=== PATIENT | female | born 1970 | race Caucasian/White ===

== ENCOUNTER 2020-07-05 14:32 | Emergency (ER) | payer MEDICARE ==
[2020-07-05 14:48] VITALS: BP 116/77; PULSE 82; RESP 18; TEMP 98
--- NOTE | 2020-07-05 14:58 | ED ---
Recheck HPI - General Source: patient Mode of arrival: ambulatory Limitations: no limitations <Thomas Johns - Last Filed: 07/05/20 15:59> <Esme Rainey - Last Filed: 07/07/20 11:38> - General Chief Complaint: Recheck/Abnormal Lab/Rx Stated Complaint: Med refill Time Seen by Provider: 07/05/20 14:52 - History of Present Illness Initial Comments: 49-year-old female presenting to the emergency room with a chief complaint of medication refill. Patient states she recently had a new insurance and is in the process of finding a new primary care physician I catches. Patient reports taking multiple medications but she is currently out of temazepam, Minipress and risperidone. Patient states she has been on these medications for the past 6 years. Patient did bring documents verifying her last medication refill. She denies any other complaints (Thomas Johns) - Related Data Previous Rx's Medication Instructions Recorded Prazosin HCl [Minipress] 2 mg PO HS #30 cap 07/05/20 Temazepam 30 mg PO HS PRN 3 Days #3 cap 07/05/20 risperiDONE 3 mg PO HS #30 tablet 07/05/20 Allergies Allergy/AdvReac Type Severity Reaction Status Date / Time codeine Allergy Dyspnea Verified 07/05/20 14:43 levofloxacin [From Levaquin] Allergy Swelling Verified 07/05/20 14:43 montelukast [From Singulair] Allergy Dyspnea Verified 07/05/20 14:43 Penicillins Allergy Rash/Hives Verified 07/05/20 14:43 trazodone Allergy Dyspnea Verified 07/05/20 14:43 Review of Systems ROS Other: All systems not noted in ROS Statement are negative. <Thomas Johns - Last Filed: 07/05/20 15:59> ROS Other: All systems not noted in ROS Statement are negative. <Esme Rainey - Last Filed: 07/07/20 11:38> ROS Statement: Those systems with pertinent positive or pertinent negative responses have been documented in the HPI. Past Medical History Past Medical History: Thyroid Disorder History of Any Multi-Drug Resistant Organisms: None Reported Past Surgical History: No Surgical Hx Reported Additional Past Surgical History / Comment(s): ovarian cyst, deviated septum Past Psychological History: Bipolar, PTSD, Schizophrenia Smoking Status: Current every day smoker Past Alcohol Use History: None Reported Past Drug Use History: None Reported <Thomas Johns - Last Filed: 07/05/20 15:59> General Exam Limitations: no limitations General appearance: alert, in no apparent distress Head exam: Present: atraumatic, normocephalic, normal inspection Eye exam: Present: normal appearance, PERRL, EOMI Pupils: Present: normal accommodation ENT exam: Present: normal exam, normal oropharynx, mucous membranes moist Neck exam: Present: normal inspection, full ROM. Absent: tenderness, meningismus Respiratory exam: Present: normal lung sounds bilaterally. Absent: respiratory distress, wheezes, rales Cardiovascular Exam: Present: regular rate, normal rhythm, normal heart sounds Extremities exam: Present: normal inspection, full ROM Back exam: Present: normal inspection, full ROM Neurological exam: Present: alert, oriented X3, normal gait Psychiatric exam: Present: normal affect, normal mood Skin exam: Present: warm, dry, intact, normal color <Thomas Johns - Last Filed: 07/05/20 15:59> Course Vital Signs 07/05/20 14:43 Temperature 98 F Pulse Rate 82 Respiratory 18 Rate Blood Pressure 116/77 O2 Sat by Pulse 98 Oximetry Medical Decision Making <Thomas Johns - Last Filed: 07/05/20 15:59> <Esme Rainey - Last Filed: 07/07/20 11:38> - Medical Decision Making 49-year-old female presenting to emergency Department with chief complaint medication refill. Patient was given 30 tablets of the risperidone and Minipress. However, the temazepam is a controlled substance and she was only given a three-day supply of medications. Advised her to obtain a primary care physician or psychiatrist in order to continue getting refills of medication. MAPS obtained on patient. Case discussed with physician. (Thomas Johns) I was available for consultation in the emergency department. The history and physical exam were done by the midlevel provider. I was consulted for this patients care. I reviewed the case with the midlevel provider and based on their presentation of the patient, I agree with the assessment, medical decision making and plan of care as documented. Chart was dictated using [employer] dictation software. Attempts were made to correct any dictation errors however some typographical errors may persist. Patient was seen during a national state of emergency due to the Covid-19 pandemic. (Esme Rainey) Disposition Is patient prescribed a controlled substance at d/c from ED?: Yes If prescribed controlled substance>3 days was MAPS reviewed?: Prescribed <3 Days Time of Disposition: 15:12 <Thomas Johns - Last Filed: 07/05/20 15:59> <Esme Rainey - Last Filed: 07/07/20 11:38> Clinical Impression: Encounter for medication refill Disposition: HOME SELF-CARE Condition: Stable Instructions (If sedation given, give patient instructions): Risperidone (By mouth) Additional Instructions: Follow-up with a primary care physician and psychiatrist.Please return to the Emergency Department if symptoms worsen or any other concerns. Prescriptions: Prazosin HCl [Minipress] 2 mg PO HS #30 cap risperiDONE 3 mg PO HS #30 tablet Temazepam 30 mg PO HS PRN 3 Days #3 cap PRN Reason: Insomnia Referrals: None,Stated [Primary Care Provider] - 1-2 days
== END 2020-07-05 15:20 | disposition home or self-care (01) ==
LOC: EC 14:32
DX: Z76.0 Encounter for issue of repeat prescription (principal); F17.200 Nicotine dependence, unspecified, uncomplicated; Z88.5 Allergy status to narcotic agent; Z88.1 Allergy status to other antibiotic agents; Z88.0 Allergy status to penicillin; Z88.8 Allergy status to other drugs, medicaments and biological substances
CPT/HCPCS: 99281